=== PATIENT | female | born 1960 | race African-American/Black ===

== ENCOUNTER 2016-12-07 23:57 | Emergency (ER) | payer OTHER ==
[~2016-12-07] VITALS: Ht 167.6 cm; Wt 80.0 kg
[~2016-12-07 23:57] MED LIST: ALBU17AE26; CLARITIN; GUAI50GR; NO MEDS; PSEU30TA29; SEE MED. SHEET
[2016-12-08 01:17] VITALS: BP 142/94
== END 2016-12-08 01:17 | disposition home or self-care (01) ==
LOC: ER 23:57
DX: L23.9 Allergic contact dermatitis, unspecified cause (principal); K21.9 Gastro-esophageal reflux disease without esophagitis; J45.909 Unspecified asthma, uncomplicated; Z88.8 Allergy status to other drugs, medicaments and biological substances; Z98.890 Other specified postprocedural states
CPT/HCPCS: 99283

== ENCOUNTER 2017-01-23 10:11 | Emergency (ER) | payer OTHER ==
[~2017-01-23] VITALS: Ht 170.2 cm; Wt 84.0 kg
[2017-01-23] MEDS ORDERED: MAGNESIUM/ALUMINUM HYDROXIDE/SIMETHICONE 30ML UDC PO ONE (11:15)
[2017-01-23] MEDS ORDERED: FAMOTIDINE 20MG TABLET PO ONE (11:15)
[2017-01-23 11:50] VITALS: BP 152/85
== END 2017-01-23 12:00 | disposition home or self-care (01) ==
LOC: ER 11:55
DX: J30.9 Allergic rhinitis, unspecified (principal); J45.909 Unspecified asthma, uncomplicated; K21.9 Gastro-esophageal reflux disease without esophagitis; Z88.8 Allergy status to other drugs, medicaments and biological substances; Z79.899 Other long term (current) drug therapy
CPT/HCPCS: 99283

== ENCOUNTER 2019-05-22 11:40 | Emergency (ER) | payer MEDICAID, OTHER ==
[~2019-05-22] VITALS: Ht 170.2 cm; Wt 77.0 kg
[2019-05-22] MEDS ORDERED: DICYCLOMINE 10 MG/5 ML ORAL SYR PO STA (12:30)
[2019-05-22] MEDS ORDERED: VISCOUS LIDOCAINE 2% 15 ML UDC PO STA (12:30)
[2019-05-22] MEDS ORDERED: CETIRIZINE 10MG TABLET PO SCH (12:30)
[2019-05-22] MEDS ORDERED: MAGNESIUM/ALUMINUM HYDROXIDE/SIMETHICONE 30ML UDC PO STA (12:30)
[2019-05-22 13:11] VITALS: BP 147/76
== END 2019-05-22 13:12 | disposition home or self-care (01) ==
LOC: ER 11:49
DX: J30.9 Allergic rhinitis, unspecified (principal); K29.50 Unspecified chronic gastritis without bleeding; K21.9 Gastro-esophageal reflux disease without esophagitis; Z88.8 Allergy status to other drugs, medicaments and biological substances
CPT/HCPCS: 99284

== ENCOUNTER 2019-09-21 17:53 | Emergency (ER) | payer MEDICAID ==
[~2019-09-21] VITALS: Ht 167.6 cm; Wt 76.0 kg
[2019-09-21 18:01] VITALS: BP 134/77
== END 2019-09-21 23:28 | disposition home or self-care (01) ==
LOC: ER 17:53
DX: S23.41XA Sprain of ribs, initial encounter (principal); R07.82 Intercostal pain; J45.909 Unspecified asthma, uncomplicated; Z88.8 Allergy status to other drugs, medicaments and biological substances; Z79.899 Other long term (current) drug therapy; X58.XXXA Exposure to other specified factors, initial encounter; Y93.89 Activity, other specified; Y92.89 Other specified places as the place of occurrence of the external cause; Y99.8 Other external cause status
CPT/HCPCS: 99281; 99282

== ENCOUNTER 2019-10-09 04:26 | Emergency (ER) | payer MEDICAID ==
[~2019-10-09] VITALS: Ht 165.1 cm; Wt 73.5 kg
[2019-10-09 05:01] VITALS: BP 139/76
== END 2019-10-09 07:21 | disposition home or self-care (01) ==
LOC: ER 04:26
DX: S20.20XA Contusion of thorax, unspecified, initial encounter (principal); K21.9 Gastro-esophageal reflux disease without esophagitis; Z98.890 Other specified postprocedural states; Z88.8 Allergy status to other drugs, medicaments and biological substances; X58.XXXA Exposure to other specified factors, initial encounter; Y93.89 Activity, other specified; Y92.018 Other place in single-family (private) house as the place of occurrence of the external cause
CPT/HCPCS: 99282

== ENCOUNTER 2020-01-19 02:18 | Emergency (ER) | payer MEDICAID ==
[~2020-01-19] VITALS: Ht 172.7 cm; Wt 75.0 kg
[2020-01-19] MEDS ORDERED: ACETAMINOPHEN 500MG TABLET PO ONE (03:30)
[2020-01-19] MEDS ORDERED: IBUPROFEN 800MG TABLET PO ONE (03:30)
[2020-01-19 03:49] VITALS: BP 146/89
== END 2020-01-19 04:42 | disposition home or self-care (01) ==
LOC: ER 02:31
DX: M54.5 Low back pain (principal); M54.30 Sciatica, unspecified side; K21.9 Gastro-esophageal reflux disease without esophagitis; Z98.890 Other specified postprocedural states; Z88.8 Allergy status to other drugs, medicaments and biological substances
CPT/HCPCS: 99283

== ENCOUNTER 2020-01-28 23:58 | Emergency (ER) | payer MEDICAID ==
[~2020-01-28] VITALS: Ht 170.2 cm; Wt 75.0 kg
[2020-01-29] MEDS ORDERED: KETOROLAC 60MG/2ML VIAL IM ONE (01:15)
[2020-01-29 01:18] LABS: CLARITY URINE CLEAR (CLEAR); COLOR URINE YELLOW (YELLOW); KETONES URINE NEGATIVE (NEGATIVE); LEUKOCYTE ESTERASE URINE 1+ (NEGATIVE); NITRITE URINE NEGATIVE (NEGATIVE); OCCULT BLOOD URINE NEGATIVE (NEGATIVE); PH URINE 6.5 (4.5-8.0); PROTEIN URINE NEGATIVE (NEGATIVE); SPECIFIC GRAVITY URINE 1.008 (1.005-1.030); UROBILINOGEN URINE 0.2 E.U./dL (0.2-1.0)
[2020-01-29 02:42] VITALS: BP 138/74
== END 2020-01-29 02:50 | disposition home or self-care (01) ==
LOC: ER 23:58
DX: S39.012A Strain of muscle, fascia and tendon of lower back, initial encounter (principal); J45.909 Unspecified asthma, uncomplicated; Z98.890 Other specified postprocedural states; Z88.8 Allergy status to other drugs, medicaments and biological substances; X58.XXXA Exposure to other specified factors, initial encounter; Y93.89 Activity, other specified; Y92.89 Other specified places as the place of occurrence of the external cause
CPT/HCPCS: 81003; 96372; 99283; J1885

== ENCOUNTER 2024-03-20 13:42 | Emergency (ER) | payer MEDICAID ==
[~2024-03-20] VITALS: Ht 172.7 cm; Wt 109.0 kg
[2024-03-20 13:44] VITALS: TEMP 98.6; O2SAT 99
[2024-03-20] MEDS: IBUPROFEN 800MG TABLET PO ONE (14:57)
[2024-03-20] MEDS: ACETAMINOPHEN 325MG TABLET PO ONE (14:57)
[2024-03-20] MEDS: GABAPENTIN 300MG CAPSULE PO SCH (14:57)
[2024-03-20] MEDS ORDERED: TOPUD MT (15:31)
[2024-03-20] MEDS ORDERED: GABA-532 MT (15:31)
[2024-03-20] MEDS ORDERED: CARI250T MT (15:31)
[2024-03-20] MEDS ORDERED: IBUP-1525 MT (15:31)
[2024-03-20 15:33] VITALS: BP 140/70; PULSE 80; RESP 15
== END 2024-03-20 15:34 | disposition home or self-care (01) ==
LOC: ER 13:42
DX: M54.50 Low back pain, unspecified (principal); J45.909 Unspecified asthma, uncomplicated; Z88.8 Allergy status to other drugs, medicaments and biological substances; Z98.890 Other specified postprocedural states
CPT/HCPCS: 99284

== ENCOUNTER 2025-01-28 13:24 | Emergency (ER) | payer MEDICAID ==
[~2025-01-28] VITALS: Ht 160 cm; Wt 72.0 kg
[~2025-01-28 13:24] MED LIST changes: +CARI250T MT; +GABA-1180 MT; +IBUP-1525 MT; +TOPUD MT
[2025-01-28 13:27] VITALS: TEMP 36.6; O2SAT 98
[2025-01-28 14:47] VITALS: PULSE 79
[2025-01-28] MEDS: IBUPROFEN 400MG TABLET PO ONE (14:47)
[2025-01-28 14:58] VITALS: BP 151/91; RESP 16
[2025-01-28] MEDS: LIDOCAINE 5% PATCH TOP SCH (14:58)
[2025-01-28 16:09] VITALS: TEMP 98.3
[2025-01-28] MEDS: ACETAMINOPHEN 325MG TABLET PO ONE (16:09)
[2025-01-28] MEDS ORDERED: ACET-2708 MT (16:12)
[2025-01-28] MEDS ORDERED: LIDO700A30 TP (16:12)
== END 2025-01-28 16:30 | disposition home or self-care (01) ==
LOC: ER 13:24
DX: S76.011A Strain of muscle, fascia and tendon of right hip, initial encounter (principal); M54.2 Cervicalgia; Z88.8 Allergy status to other drugs, medicaments and biological substances; Z79.899 Other long term (current) drug therapy; W01.0XXA Fall on same level from slipping, tripping and stumbling without subsequent striking against object, initial encounter; Y93.01 Activity, walking, marching and hiking; Y92.89 Other specified places as the place of occurrence of the external cause; Y99.8 Other external cause status
CPT/HCPCS: 73502; 73562; 99284

== ENCOUNTER 2025-07-09 16:04 | Emergency (ER) | payer MEDICAID ==
[~2025-07-09] VITALS: Ht 170.2 cm; Wt 77.0 kg
[~2025-07-09 16:04] MED LIST changes: +ACET-2708 MT; +LIDO700A30 TP
[2025-07-09 16:11] VITALS: O2SAT 100
[2025-07-09] MEDS ORDERED: AMOX1TAB16 MT (16:46)
[2025-07-09] MEDS ORDERED: BO1 TP (16:46)
[2025-07-09] MEDS: ACETAMINOPHEN 325MG TABLET PO ONE (17:05)
[2025-07-09] MEDS: TETANUS, DIPHTHERIA, PERTUSSIS VAC/PF 0.5ML (>10YR OLD) IM ONE (17:07)
[2025-07-09 17:13] VITALS: BP 139/59; PULSE 96; RESP 16; TEMP 37; O2SAT 96
== END 2025-07-09 17:15 | disposition home or self-care (01) ==
LOC: ER 16:04
DX: S81.839A Puncture wound without foreign body, unspecified lower leg, initial encounter (principal); J45.909 Unspecified asthma, uncomplicated; W55.01XA Bitten by cat, initial encounter; Y93.89 Activity, other specified; Y92.89 Other specified places as the place of occurrence of the external cause; Y99.8 Other external cause status
CPT/HCPCS: 90471; 90715; 99283